=== PATIENT | male | born 1965 | race Caucasian/White ===

== ENCOUNTER 2023-12-26 17:53 | Emergency (ER) | payer OTHER, SELFPAY ==
[2023-12-26] VITALS (9 sets, daily range): BP systolic 124–130; BP diastolic 72–75; PULSE 79–95; RESP 18–35; TEMP 36.7; O2SAT 97–100; BMI 23.8
--- NOTE | 2023-12-26 18:12 | DI.CT.S_ITS ---
PROCEDURE: CT HEAD/BRAIN WO CON INDICATIONS: new seizure TECHNIQUE: Noncontrast 4.5 mm thick angled axial sections acquired from the foramen magnum to the vertex, with coronal and sagittal reformats. For radiation dose reduction, the following was used: automated exposure control, adjustment of mA and/or kV according to patient size. COMPARISON: None. FINDINGS: Image quality: Diagnostic. CSF spaces: Basal cisterns are patent. No extra-axial fluid collections. Ventricles are normal in size and shape. Brain: No midline shift. No intracranial masses or hemorrhage. [place]-white matter interface is normal. Skull and face: Calvarium and visualized facial bones are intact, without suspicious lesions. Sinuses: Visualized sinuses and mastoids are clear. IMPRESSION: No acute intracranial pathology. Dictated by: David Llanes M.D. on 12/26/2023 at 19:18 Approved by: David Llanes M.D. on 12/26/2023 at 19:19
[2023-12-26 18:18] LABS: Add Manual Diff / Slide Review NO; Basophils Absolute Auto 0 /uL (0-100); Basophils Percent Auto 0.5 % (0-2); Eosinophils Absolute Auto 0 /uL (0-450); Eosinophils Percent Auto 0.3 % (2-4); Hematocrit 40.9 % (41-53); Hemoglobin 14.2 g/dL (13.5-17.5); Lymphocytes Absolute Auto 2400 /uL (1100-4500); Lymphocytes Percent Auto 36.3 % (25-40); Mean Corpuscular HGB Conc 34.8 % (30-36); Mean Corpuscular Hemoglobin 33.8 PG (26-34); Mean Corpuscular Volume 97.3 fL (80-100); Monocytes Absolute Auto 700 /uL (0-900); Monocytes Percent Auto 11.3 % (3-14); Neutrophils Absolute Auto 3400 /uL (1500-7000); Neutrophils Percent Auto 51.6 % (50-75); Platelet Count 126 X10^3/uL (150-400); Red Cell Distribution Width 12.9 % (11.6-14.8); White Blood Cell Count 6.5 X10^3/uL (4.5-11.0)
[2023-12-26] MEDS: SODIUM CHLORIDE 0.9% 1,000 ML 1000 ML IV (18:23)
[2023-12-26 18:30] LABS: Alanine Aminotransferase 122 IU/L (<50); Albumin 4.7 g/dL (3.5-5.0); Albumin Globulin Ratio 1.7 (1.0-2.8); Alkaline Phosphatase 79 U/L (38-126); Aspartate Aminotransferase 182 IU/L (17-59); BUN Creatinine Ratio 24.7 (6-22); Bilirubin Total 1.4 mg/dL (0.2-1.3); Blood Urea Nitrogen 18 mg/dL (9-20); Calcium 9.8 mg/dL (8.4-10.2); Carbon Dioxide 23 mmol/L (22-32); Chloride 101 mmol/L (98-107); Estimated Glomerular Filt Rate > 60 mL/min (>60); Ethanol (ETOH) < 10 mg/dL; Globulin 2.8 g/dL (1.7-4.1); Glucose 124 mg/dL (70-100); HEMOLYSIS 16 (0-50); Potassium 3.6 mmol/L (3.4-5.1); Sodium 136 mmol/L (137-145); Total Protein 7.5 g/dL (6.3-8.2)
--- NOTE | 2023-12-26 18:54 | ED_ITS ---
HPI - Seizure General Chief Complaint: Seizure Stated Complaint: GLF, Seizure Time Seen by Provider: 12/26/23 17:58 Source: patient, family and EMS Mode of arrival: EMS Limitations: no limitations History of Present Illness HPI Narrative: Patient is a 58-year-old male history of hypertension hyperlipidemia presents today with seizure. He reports that he does drink alcohol however he is cut back significantly over the last 2 years he now has like 2-3 drinks every day he has not had anything to drink for 3 days. He also states that he just traveled here from [place]. He worked all day got a red eye flight unable to sleep on the airplane stayed awake with the whole next day only sent for a couple of hours that night and then was awake all day today. He has had very little to eat he has tried to stay hydrated and drink. He went to his aunt's house he was standing by the truck talking to her she noticed that his head started swinging he leaned against the truck and slid down he shook and convulsed for a couple of minutes. He did bite his lip. No urinary incontinence. He was postictal after arrival. EMS was called. He has never had a seizure before. He has a little bit of a tremor but reports he always has a slight tremor. Related Data Allergies Allergy/AdvReac Type Severity Reaction Status Date / Time No Known Drug Allergies Allergy Verified 12/26/23 18:12 Patient History Social History Smoking Status: Never smoker Smoking Status: Never smoker alcohol intake frequency: a few times a week Alcohol type: beer, wine and hard liquor Substance Use Type: marijuana Exam Initial Vital Signs Initial Vital Signs: Vital Signs Temperature 98.0 F 12/26/23 17:45 Pulse Rate 95 H 12/26/23 17:45 Respiratory Rate 22 12/26/23 17:45 Blood Pressure 130/73 12/26/23 17:45 Pulse Oximetry 97 12/26/23 17:45 Oxygen Delivery Method Room Air 12/26/23 17:45 GENERAL: Well-appearing, well-nourished and in no acute distress. HEENT: Head atraumatic,EOMI, pupils reactive, face symmetric, bit lower lip CARDIOVASCULAR: Regular rate and rhythm without murmurs, rubs or gallops. RESPIRATORY: Breath sounds equal bilaterally, no wheezes rales or rhonchi. ABDOMEN: Soft, nontender. Normoactive bowel sounds all 4 quadrants. No guarding or rebound. EXTREMITIES: Normal range of motion, no clubbing or edema. Neurovascularly intact NEUROLOGICAL: Alert and oriented x4.Normal gait and speech. Cranial nerves II through XII grossly intact. SKIN: Warm, dry, no laceration, no petechiae, no rashes or lesions. Scores GCS [place] coma scale eye opening: Spontaneous [place] coma scale verbal response: Orientated [place] coma scale motor response: Obey commands [place] coma scale total score: 15 Course Orders Ordered: ED Orders 12/26/23 19:07 US abdomen limited Stat 12/26/23 19:30 Urine Drug Screen, Rapid Stat Discontinued Medications Sodium Chloride (Normal Saline 0.9%) 1,000 mls @ 1,000 mls/hr IV BOLUS ONE Stop: 12/26/23 19:08 Last Infusion: 12/26/23 19:35 Dose: Infused Documented By: Admin: 12/26/23 18:23 Dose: 1,000 mls/hr Documented By: CRISTOPHER Sodium Chloride (Sodium Chloride 0.9% Flush) 10 ml IV BID RADHA Sodium Chloride (Sodium Chloride 0.9% Flush) 10 ml IV PRN PRN PRN Reason: Flush Vital Signs Vital signs: Vital Signs - 8 hr 12/26/23 20:00 12/26/23 20:30 12/26/23 21:00 Pulse Rate 79 82 82 Respiratory Rate 18 25 H 23 Pulse Oximetry 100 99 99 MDM - Seizure Lab Data 12/26/23 18:08 12/26/23 18:08 Labs: Lab Results 12/26/23 12/26/23 Range/Units 18:08 19:30 WBC 6.5 (4.5-11.0) X10^3/uL RBC 4.20 L (4.5-5.9) X10^6/uL Hgb 14.2 (13.5-17.5) g/dL Hct 40.9 L (41-53) % MCV 97.3 (80-100) fL MCH 33.8 (26-34) PG MCHC 34.8 (30-36) % RDW 12.9 (11.6-14.8) % Plt Count 126 L (150-400) X10^3/uL Neut % (Auto) 51.6 (50-75) % Lymph % (Auto) 36.3 (25-40) % Rogers % (Auto) 11.3 (3-14) % Eos % (Auto) 0.3 L (2-4) % Baso % (Auto) 0.5 (0-2) % Neut # (Auto) 3400 (3850-8306) /uL Lymph # (Auto) 2400 (2707-0508) /uL Rogers # (Auto) 700 (0-900) /uL Eos # (Auto) 0 (0-450) /uL Baso # (Auto) 0 (0-100) /uL Sodium 136 L (137-145) mmol/L Potassium 3.6 (3.4-5.1) mmol/L Chloride 101 (98-107) mmol/L Carbon Dioxide 23 (22-32) mmol/L BUN 18 (9-20) mg/dL Creatinine 0.73 (0.66-1.25) mg/dL Estimated GFR > 60 (>60) mL/min BUN/Creatinine Ratio 24.7 H (6-22) Glucose 124 H (70-100) mg/dL Calcium 9.8 (8.4-10.2) mg/dL Total Bilirubin 1.4 H (0.2-1.3) mg/dL AST 182 H (17-59) IU/L ALT 122 H (<50) IU/L Alkaline Phosphatase 79 (38-126) U/L Total Protein 7.5 (6.3-8.2) g/dL Albumin 4.7 (3.5-5.0) g/dL Globulin 2.8 (1.7-4.1) g/dL Albumin/Globulin Ratio 1.7 (1.0-2.8) U Opiates 300ng/mL cut Negative (Negative) Ur Oxycodone Screen Negative (Negative) Urine Methadone Screen Negative (Negative) Ur Barbiturates Screen Negative (Negative) U Tricyclic Antidepress Negative (Negative) Ur Phencyclidine Scrn Negative (Negative) Ur Amphetamines Screen Negative (Negative) U Methamphetamines Scrn Negative (Negative) Ur MDMA Scrn (Ecstasy) Negative (Negative) U Benzodiazepines Scrn Negative (Negative) Urine Cocaine Screen Negative (Negative) U Marijuana (THC) Screen Positive H (Negative) Urine pH Normal (Normal) Urine Specific [place] Normal (Normal) Ethyl Alcohol < 10 ( - 10) mg/dL Ur Creatinine Normal (Normal) Imaging Data CT scan - head: Radiologist's Impression: PROCEDURE: CT HEAD/BRAIN WO CON INDICATIONS: new seizure TECHNIQUE: Noncontrast 4.5 mm thick angled axial sections acquired from the foramen magnum to the vertex, with coronal and sagittal reformats. For radiation dose reduction, the following was used: automated exposure control, adjustment of mA and/or kV according to patient size. COMPARISON: None. FINDINGS: Image quality: Diagnostic. CSF spaces: Basal cisterns are patent. No extra-axial fluid collections. Ventricles are normal in size and shape. Brain: No midline shift. No intracranial masses or hemorrhage. [place]-white matter interface is normal. Skull and face: Calvarium and visualized facial bones are intact, without suspicious lesions. Sinuses: Visualized sinuses and mastoids are clear. IMPRESSION: No acute intracranial pathology. Dictated by: David Llanes M.D. on 12/26/2023 at 19:18 US - abdomen: Radiologist's Impression: PROCEDURE: US ABDOMEN LIMITED INDICATIONS: elevated bili and lfts TECHNIQUE: Real-time scanning was performed of the abdominal and retroperitoneal organs, with image documentation. COMPARISON: None. FINDINGS: Liver: The liver demonstrates diffusely increased echotexture consistent with chronic hepatocellular disease/hepatic steatosis. There is a hypoechoic focus in the right hepatic dome measuring 2.1 x 2.1 x 1.8 cm. Prominent left portal vein measuring 11.7 mm in diameter. Hepatopetal flow. Gallbladder: Surgically absent Biliary ducts: Intrahepatic bile ducts are non-dilated. Extrahepatic bile duct caliber measures 8 mm. Normal is 6-7 mm or less in diameter, or 10 mm or less post-cholecystectomy. Pancreas: Unremarkable sonographic evaluation of the pancreas. Miscellaneous: No free abdominal fluid. IMPRESSION: The liver demonstrates diffusely increased echotexture without focal abnormalities consistent with chronic hepatocellular disease/hepatic steatosis. Findings may explain patient's abnormal liver function tests. However, no findings to suggest biliary ductal obstruction. A 2.1 cm hypoechoic hepatic focus in the right hepatic dome which may represent focal fatty sparing versus possible hemangioma. Consider outpatient CT/MRI of the abdomen (hepatic mass protocol) further characterization. Dictated by: Pb Reddy M.D. on 12/26/2023 at 20:32 Approved by: Pb Reddy M.D. on 12/26/2023 at 20:35 MDM Narrative Medical decision making narrative: Patient is noted to have elevated bilirubin and liver enzymes he states that he has known thought liver. Unclear what his baseline numbers are. He has had a cholecystectomy calm and bile duct is dilated normal for post cholecystectomy he is nontender in his right upper quadrant I think this is unrelated to today. Unclear if this is related to alcohol or not. Patient also has baseline tremors he overall is feeling a lot better. Suspect seizure happened today secondary to decreased and food intake with underlying mild alcohol use disorder. Not sure that it is an alcohol withdrawal seizure but this may have contributed. I encouraged that he follow-up with his PCP and Neurology. He anticipates returning back to [place] in January. He is instructed to return to the ED if he should have a recurrent seizure. Discharge Plan Departure Patient Disposition: Home Clinical Impression: New onset seizure Instructions: DI for Seizure (Not Epilepsy/Seizure Disorder) Activity Restrictions/Additional Instructions: DO NOT DRIVE UNTIL CLEARED BY NEUROLOGY. *You have been diagnosed with seizure *What to do: At this time I think that your seizure from not sleeping and eating. May or may not be contributing to alcohol use well. At this time no seizure medication indicated however if you should have recurrent seizure then you must return to ED for further evaluation *Continue to take medications as directed *Follow up with your primary care provider in 2-3 days or call [phone] Please call your PCP in [place] to schedule follow up appointment for when you return in for a referral to Neurology mamie *Return to ER if you should have recurrent seizure weakness numbness tingling or any new, worsening or concerning symptoms Stand Alone Forms: Patient Portal/API
--- NOTE | 2023-12-26 19:07 | DI.US.S_ITS ---
PROCEDURE: US ABDOMEN LIMITED INDICATIONS: elevated bili and lfts TECHNIQUE: Real-time scanning was performed of the abdominal and retroperitoneal organs, with image documentation. COMPARISON: None. FINDINGS: Liver: The liver demonstrates diffusely increased echotexture consistent with chronic hepatocellular disease/hepatic steatosis. There is a hypoechoic focus in the right hepatic dome measuring 2.1 x 2.1 x 1.8 cm. Prominent left portal vein measuring 11.7 mm in diameter. Hepatopetal flow. Gallbladder: Surgically absent Biliary ducts: Intrahepatic bile ducts are non-dilated. Extrahepatic bile duct caliber measures 8 mm. Normal is 6-7 mm or less in diameter, or 10 mm or less post-cholecystectomy. Pancreas: Unremarkable sonographic evaluation of the pancreas. Miscellaneous: No free abdominal fluid. IMPRESSION: The liver demonstrates diffusely increased echotexture without focal abnormalities consistent with chronic hepatocellular disease/hepatic steatosis. Findings may explain patient's abnormal liver function tests. However, no findings to suggest biliary ductal obstruction. A 2.1 cm hypoechoic hepatic focus in the right hepatic dome which may represent focal fatty sparing versus possible hemangioma. Consider outpatient CT/MRI of the abdomen (hepatic mass protocol) further characterization. Dictated by: Pb Reddy M.D. on 12/26/2023 at 20:32 Approved by: Pb Reddy M.D. on 12/26/2023 at 20:35
[2023-12-26 20:04] LABS: Ur Creatinine Normal (Normal); Ur Specific Gravity Normal (Normal); Urine Amphetamines Negative (Negative); Urine Barbiturates Negative (Negative); Urine Benzodiazepines Negative (Negative); Urine Cocaine Negative (Negative); Urine MDMA Negative (Negative); Urine Methadone Negative (Negative); Urine Methamphetamines Negative (Negative); Urine Opiates Negative (Negative); Urine Oxycodone Negative (Negative); Urine Phencyclidine Negative (Negative); Urine THC Positive (Negative); Urine Tricyclic Antidepressant Negative (Negative); Urine pH Normal (Normal)
== END 2023-12-26 21:27 | disposition home or self-care (01) ==
PROVIDERS: Emergency Provider Emergency Medicine
DX: R56.9 Unspecified convulsions (principal)
CPT/HCPCS: 70450; 76705; 80053; 80305; 80320; 85025; 93005; 99284